=== PATIENT | male | born 1980 | race Caucasian/White ===

== ENCOUNTER 2019-02-17 20:22 | Emergency (ER) | payer MEDICAID ==
[~2019-02-17] VITALS: Ht 180.3 cm; Wt 99.8 kg
[2019-02-17 20:33] VITALS: BP 143/95
--- NOTE | 2019-02-17 20:37 | NUR ---
PT TAKEN TO BED 3
[2019-02-17 20:45] VITALS: BP 143/95
--- NOTE | 2019-02-17 20:45 | NUR ---
38 Y/O M PRESENTED TO ED WITH C/O WANTING TO GET DERMAL PEIRCING REMOVED FROM L FOREARM. PER PT "IT HAS BEEN CONTINUING TO GET SWOLLEN AND WAS BLEEDING AT HOME. WHEN I CUT IT PUS COMES OUT." BLEEDING CONTROLLED. + EDEMA AND TENDERNESS. NO ERTYTHEMA NOTED. ERMD NOTIFIED. WILL CONTINUE TO MONITOR.
[2019-02-17] MEDS ORDERED: CLINDAMYCIN 600 MG/4 ML VIAL IM ONE (20:50)
[2019-02-17] MEDS ORDERED: LIDOCAINE 1% 500 MG/50 ML VIAL INJ SCH (20:50)
[2019-02-17] MEDS ORDERED: LIDOCAINE MPF 1% - 5 mL VIAL 5 ML ONE (21:05)
--- NOTE | 2019-02-17 21:28 | NUR ---
PT WOUND COVERED WITH NON ADHERENT GAUZE AND WRAPPED WITH COFLEX TAPE. +CSM
--- NOTE | 2019-02-17 21:40 | NUR ---
Patient discharged with v/s stable. Written and verbal after care instructions given and explained. Patient alert, oriented and verbalized understanding of instructions. Ambulatory with steady gait. All questions addressed prior to discharge. ID band removed. Patient advised to follow up with PMD. Rx of Keflex and motrin given. Patient educated on indication of medication including possible reaction and side effects. Opportunity to ask questions provided and answered.
== END 2019-02-17 21:40 | disposition home or self-care (01) ==
LOC: MED 20:22
DX: S51.842A Puncture wound with foreign body of left forearm, initial encounter (principal); L03.114 Cellulitis of left upper limb; X58.XXXA Exposure to other specified factors, initial encounter; Y93.9 Activity, unspecified; Y92.89 Other specified places as the place of occurrence of the external cause; Y99.8 Other external cause status
CPT/HCPCS: 10120; 96372; 99284; J2001; J3490

== ENCOUNTER 2019-04-25 11:47 | Emergency (ER) | payer MEDICAID ==
[~2019-04-25] VITALS: Ht 177.8 cm; Wt 95.3 kg
[2019-04-25 11:53] VITALS: BP 116/66
[2019-04-25] MEDS ORDERED: HYDROcodone/APAP 5/325 MG 1 TAB TAB PO ONE (12:25)
[2019-04-25 12:53] LABS: APPEARANCE,URINE CLOUDY (CLEAR); BILIRUBIN,URINE 1+ (NEGATIVE); BLOOD, URINE 3+ (NEGATIVE); COLOR,URINE DARK YELLOW (YELLOW); LEUKOCYTE ESTERASE ,URINE NEGATIVE (NEGATIVE); NITRITE, URINE NEGATIVE (NEGATIVE); UGLUCOSE NEGATIVE (NEGATIVE)
[2019-04-25 13:03] LABS: RBC,URINE TOO NUMEROUS TO COUN /HPF (0-5); WBC,URINE 0-5 /HPF (0-5)
[2019-04-25] MEDS ORDERED: cefTRIAXone 1,000 MG in LIDOCAINE MPF 1% 2.1 ML IM ONE (14:40)
[2019-04-25 16:12] LABS: BASOPHILS % (AUTO) 0.4 % (0.0-2.0); EOSINOPHILS # (AUTO) 0.1 K/uL (0-0.4); EOSINOPHILS % (AUTO) 1.4 % (0.0-4.0); HEMATOCRIT 44.3 % (36-52); LYMPHOCYTES # (AUTO) 1.7 K/uL (2.0-11.5); LYMPHOCYTES % (AUTO) 20.5 % (20.5-51.1); MEAN CORPUSCULAR HEMOGLOBIN 30 pg (27-31); MEAN CORPUSCULAR HGB CONC 34 g/dL (33-37); MEAN CORPUSCULAR VOLUME 89.9 fL (80-94); MONOCYTES # (AUTO) 0.5 K/uL (0.8-1.0); MONOCYTES % (AUTO) 5.9 % (1.7-9.3); NEUTROPHILS # (AUTO) 5.9 K/uL (1.8-7.7); NEUTROPHILS % (AUTO) 71.8 % (42.2-75.2); PLATELET COUNT (AUTO) 215 K/uL (140-450); RED BLOOD CELL COUNT(AUTO) 4.93 MIL/uL (4.20-6.10); WHITE BLOOD COUNT (AUTO) 8.2 K/uL (4.8-10.8)
[2019-04-25 16:24] LABS: ANION GAP 10.6 (8-16); CARBON DIOXIDE 32.3 mmol/L (21-32); CREATININE 0.9 mg/dL (0.7-1.3); POTASSIUM 3.9 mmol/L (3.5-5.1)
[2019-04-25 16:30] LABS: ALBUMIN 3.6 g/dL (3.4-5.0); TOTAL BILIRUBIN 0.6 mg/dL (0.0-1.0)
[2019-04-25 16:50] VITALS: BP 121/82
[2019-04-28 09:07] LABS: CHLAMYDIA TRACHOMATIS AMP DNA Negative (Negative)
== END 2019-04-25 16:48 | disposition home or self-care (01) ==
LOC: MED 11:47
DX: N45.1 Epididymitis (principal); N20.0 Calculus of kidney; Z98.890 Other specified postprocedural states
CPT/HCPCS: 36415; 74176; 76870; 80053; 81001; 85025; 96372; 99284; J0696; J2001; 87491

== ENCOUNTER 2020-07-02 17:29 | Emergency (ER) | payer OTHER, SELFPAY ==
[~2020-07-02] VITALS: Ht 180.3 cm; Wt 90.7 kg
[2020-07-02 17:40] VITALS: BP 125/78
--- NOTE | 2020-07-02 17:40 | NUR ---
PT C/O NAUSEA, SOB, PRODUCTIVE COUGH, BODY ACHES, DIARRHEA FOR 2 DAYS. REPORTS EXPOSED TO HIS [facility] WHO TESTED POSITIVE OF COVID 7 DAYS AGO. PMH: NONE
[2020-07-02 18:41] VITALS: BP 121/75
--- NOTE | 2020-07-02 18:41 | NUR ---
Patient discharged with v/s stable. Written and verbal after care instructions given and explained. Patient alert, oriented and verbalized understanding of instructions. Ambulatory with steady gait. All questions addressed prior to discharge. ID band removed. Patient advised to follow up with PMD. Rx of Promethazine, Zofran, Loperamide, and Ibuprofen given. Patient educated on indication of medication including possible reaction and side effects. Opportunity to ask questions provided and answered. Addendum: 07/02/20 at 1842 by ANILA covid swab collected and sent to the lab.
== END 2020-07-02 18:41 | disposition home or self-care (01) ==
LOC: MED 17:29
DX: B34.9 Viral infection, unspecified (principal); Z20.828 Contact with and (suspected) exposure to other viral communicable diseases
CPT/HCPCS: 99283; U0003

== ENCOUNTER 2020-09-03 10:54 | Emergency (ER) | payer OTHER, SELFPAY ==
[~2020-09-03] VITALS: Ht 180.3 cm; Wt 94.5 kg
[2020-09-03 10:57] VITALS: BP 116/71
--- NOTE | 2020-09-03 11:08 | NUR ---
PATIENT AMBULated to bed 12.
[2020-09-03] MEDS ORDERED: KETOROLAC 60 MG/2 ML VIAL IM ONE (11:30)
--- NOTE | 2020-09-03 11:37 | NUR ---
Autumn trejo in ED - 09/03/[address] at [email or web address] MILLS AT BEDSIDE FOR FURTHER EVALUATION
--- NOTE | 2020-09-03 11:45 | NUR ---
RAD AT BEDSIDE
--- NOTE | 2020-09-03 12:12 | NUR ---
DR MILLS AT PT BEDSIDE FOR FURTHER EVALUATION
--- NOTE | 2020-09-03 12:28 | NUR ---
Patient discharged with v/s stable. Written and verbal after care instructions given and explained. Patient alert, oriented and verbalized understanding of instructions. Ambulatory with steady gait. All questions addressed prior to discharge. ID band removed. Patient advised to follow up with PMD. Rx of augmentin, motrin & norco given. Patient educated on indication of medication including possible reaction and side effects. Opportunity to ask questions provided and answered.
[2020-09-03 12:29] VITALS: BP 116/71
== END 2020-09-03 12:28 | disposition home or self-care (01) ==
LOC: MED 10:54
DX: S60.211A Contusion of right wrist, initial encounter (principal); X58.XXXA Exposure to other specified factors, initial encounter; Y93.89 Activity, other specified; Y92.89 Other specified places as the place of occurrence of the external cause; Y99.8 Other external cause status
CPT/HCPCS: 73110; 73130; 96372; 99284; J1885

== ENCOUNTER 2021-08-03 11:01 | Emergency (ER) | payer OTHER ==
--- NOTE | 2021-08-03 11:30 | NUR ---
CALLED TO TRIAGE NO ANSWER
--- NOTE | 2021-08-03 12:04 | NUR ---
CALLED PATIENT ON LISTED PHONE NUMBER, STATED HE NO LONGER WISHES TO BE SEEN
--- NOTE | 2021-08-03 12:05 | NUR ---
PATIENT LEFT WITHOUT BEING SEEN BY DR. LEGER. NO FURTHER CARE PROVIDED FOR PATIENT.
== END 2021-08-03 12:05 | disposition left against medical advice (07) ==
LOC: MED 11:01
DX: M79.18 Myalgia, other site (principal); R50.9 Fever, unspecified; R51.9 Headache, unspecified; Z53.21 Procedure and treatment not carried out due to patient leaving prior to being seen by health care provider

== ENCOUNTER 2021-10-24 18:34 | Emergency (ER) | payer OTHER ==
[~2021-10-24] VITALS: Ht 180.3 cm; Wt 95.3 kg
[2021-10-24 18:47] VITALS: BP 139/84
--- NOTE | 2021-10-24 19:00 | NUR ---
41 Y/O MALE C/O LT HAND PAIN XTODAY. PALLET CONTAINER FELL ON TOP OF HAND. 10 PAIN. SWELLING NOTED. MEDHX: DENIES NKA
--- NOTE | 2021-10-24 19:36 | NUR ---
Dr. Carter examining patient.
[2021-10-24] MEDS ORDERED: IBUP-2218 PO (19:58)
[2021-10-24] MEDS ORDERED: KETOROLAC 15 MG/ML VIAL IM ONE (20:10)
[2021-10-24 21:00] VITALS: BP 132/60
--- NOTE | 2021-10-24 21:01 | NUR ---
ulnar gutter splint on left hand w/ arm sling. cap refill less than 3 seconds. sensation present. pt educated on splint care and s/s and symptoms of compartment syndrome
--- NOTE | 2021-10-24 21:03 | NUR ---
Patient discharged with v/s stable. Written and verbal after care instructions given and explained. Patient alert, oriented and verbalized understanding of instructions. Ambulatory with steady gait. All questions addressed prior to discharge. ID band removed. Patient advised to follow up with PMD. Rx of IBUPROFEN given. Patient educated on indication of medication including possible reaction and side effects. Opportunity to ask questions provided and answered. COPY OF CD, IMAGING RESULTS, AND WORKER'S COMP GIVEN TO PT.
== END 2021-10-24 21:03 | disposition home or self-care (01) ==
LOC: MED 18:34
DX: S62.657A Nondisplaced fracture of middle phalanx of left little finger, initial encounter for closed fracture (principal); S67.22XA Crushing injury of left hand, initial encounter; Z79.1 Long term (current) use of non-steroidal anti-inflammatories (NSAID); X58.XXXA Exposure to other specified factors, initial encounter; Y93.89 Activity, other specified; Y92.89 Other specified places as the place of occurrence of the external cause; Y99.8 Other external cause status
CPT/HCPCS: 29130; 73130; 96372; 99283; J1885

== ENCOUNTER 2021-12-12 21:49 | Emergency (ER) | payer OTHER ==
[~2021-12-12] VITALS: Ht 180.3 cm; Wt 95.3 kg
[~2021-12-12 21:49] MED LIST: IBUP-2218 PO
[2021-12-12 21:52] VITALS: BP 127/77
[2021-12-12] MEDS ORDERED: KETOROLAC 30 MG/ML VIAL IVP ONE (22:15)
[2021-12-12] MEDS ORDERED: NACL 0.9% 1,000 ML IV ONE ×2 (22:15→23:45)
[2021-12-12 22:46] LABS: BASOPHILS # (AUTO) 0.1 K/uL (0.00-0.22); BASOPHILS % (AUTO) 0.7 % (0.0-2.0); EOSINOPHILS # (AUTO) 0.2 K/uL (0-0.4); EOSINOPHILS % (AUTO) 2.9 % (0.0-4.0); HEMATOCRIT 44.5 % (36-52); HEMOGLOBIN 15.3 g/dL (12.0-18.0); LYMPHOCYTES # (AUTO) 2.4 K/uL (2.0-11.5); LYMPHOCYTES % (AUTO) 32.6 % (20.5-51.1); MEAN CORPUSCULAR HEMOGLOBIN 30 pg (27-31); MEAN CORPUSCULAR HGB CONC 34 g/dL (33-37); MEAN CORPUSCULAR VOLUME 88.3 fL (80-94); MONOCYTES # (AUTO) 0.6 K/uL (0.8-1.0); MONOCYTES % (AUTO) 8.5 % (1.7-9.3); NEUTROPHILS # (AUTO) 4.1 K/uL (1.8-7.7); NEUTROPHILS % (AUTO) 55.3 % (42.2-75.2); PLATELET COUNT (AUTO) 249 K/uL (140-450); RED BLOOD CELL COUNT(AUTO) 5.04 MIL/uL (4.20-6.10); RED CELL DISTRIBUTION WIDTH 12.7 % (11.6-13.7); WHITE BLOOD COUNT (AUTO) 7.5 K/uL (4.8-10.8)
--- NOTE | 2021-12-12 22:49 | NUR ---
MARIANA Kwaw at bedside explaining patient condition and risks going against medical advice.
--- NOTE | 2021-12-12 22:54 | NUR ---
Patient does not wish to proceed with medical care recommended by Evangelina ARMAS. Patient given information related to possible complications, up to and including , which could occur as a result of leaving hospital at this time. Patient verbalizes understanding of risks involved leaving against medical advice. Patient has signed AMA form.
[2021-12-12 23:15] LABS: ALBUMIN 3.7 g/dL (3.4-5.0); ANION GAP 10.1 (8-16); CARBON DIOXIDE 29.8 mmol/L (21-32); CREATININE 0.8 mg/dL (0.6-1.3); POTASSIUM 3.9 mmol/L (3.5-5.1); TOTAL BILIRUBIN 0.4 mg/dL (0.0-1.0)
[2021-12-12 23:15] LABS: APPEARANCE,URINE CLEAR (CLEAR); BILIRUBIN,URINE NEGATIVE (NEGATIVE); BLOOD, URINE 3+ (NEGATIVE); COLOR,URINE YELLOW (YELLOW); LEUKOCYTE ESTERASE ,URINE NEGATIVE (NEGATIVE); NITRITE, URINE NEGATIVE (NEGATIVE); UGLUCOSE NEGATIVE (NEGATIVE)
[2021-12-12 23:25] LABS: RBC,URINE TOO NUMEROUS TO COUN /HPF (0-5); WBC,URINE 0-5 /HPF (0-5)
[2021-12-12 23:26] LABS: CALCIUM OXALATE CRYSTALS,UR 0-10 /HPF (None Seen)
[2021-12-12 23:29] LABS: BARBITURATE, URINE NEGATIVE ng/ml (NEG <=200); BENZODIAZEPINE, URINE NEGATIVE ng/mL (NEG <=200); CANNABINOID, URINE NEGATIVE ng/mL (NEG <=50); COCAINE, URINE NEGATIVE ng/mL (NEG <=300); OPIATE, URINE NEGATIVE ng/mL (NEG <=2000); PHENCYCLIDINE SCREEN,URINE NEGATIVE ng/mL (NEG <=25)
[2021-12-12] MEDS ORDERED: MORPHINE SULFATE 4 MG/ML SYR IVP ONE (23:45)
--- NOTE | 2021-12-13 | NUR ---
IV removed, catheter intact and site benign. Applied folded 4x4 gauze and tape to stop bleeding.
[2021-12-14] MEDS ORDERED: fentaNYL citrate 0.05 MG/ML VIAL ONE (16:32)
[2021-12-14] MEDS ORDERED: MIDAZOLAM 2 MG/2 ML VIAL ONE (16:32)
[2021-12-14] MEDS ORDERED: PROPOFOL 200 MG/20 ML VIAL IV ONE (16:33)
[2021-12-14] MEDS ORDERED: ONDANSETRON 4 MG/2 ML VIAL ONE (17:24)
[2021-12-14] MEDS ORDERED: DEXAMETHASONE 4 MG/ML VIAL ONE (17:24)
[2021-12-15] MEDS ORDERED: KETO10TA2 PO (08:25)
== END 2021-12-12 23:56 | disposition left against medical advice (07) ==
LOC: MED 21:49
DX: N20.0 Calculus of kidney (principal); Z79.1 Long term (current) use of non-steroidal anti-inflammatories (NSAID)
CPT/HCPCS: 36415; 74176; 80053; 80305; 81001; 85025; 96361; 96374; 99284; J1885; J7030; J1100; J2250; J2270; J2405; J2704; J3010

== ENCOUNTER 2023-07-17 23:06 | Emergency (ER) | payer OTHER ==
[~2023-07-17] VITALS: Ht 180.3 cm; Wt 99.8 kg
[~2023-07-17 23:06] MED LIST changes: -IBUP-2218 PO; +KETO10TA2 PO
[2023-07-17 23:10] VITALS: BP 119/72; PULSE 76; RESP 17; TEMP 97.9; O2SAT 97
[2023-07-18] MEDS ORDERED: BACITRACIN OINT 500 UNITS/GM PKT TP ONE (03:20)
[2023-07-18] MEDS ORDERED: NAPR-54 PO (03:20)
[2023-07-18] MEDS ORDERED: BACI-418 TP (03:20)
== END 2023-07-18 04:30 | disposition home or self-care (01) ==
LOC: MED 23:06
DX: S61.210A Laceration without foreign body of right index finger without damage to nail, initial encounter (principal); Z87.448 Personal history of other diseases of urinary system; Z79.899 Other long term (current) drug therapy; Z79.1 Long term (current) use of non-steroidal anti-inflammatories (NSAID); Z79.2 Long term (current) use of antibiotics; X58.XXXA Exposure to other specified factors, initial encounter; Y92.89 Other specified places as the place of occurrence of the external cause; Y93.89 Activity, other specified; Y99.8 Other external cause status
CPT/HCPCS: 90715; 99283

== ENCOUNTER 2024-04-15 00:55 | Emergency (ER) | payer OTHER ==
[~2024-04-15] VITALS: Ht 177.8 cm; Wt 100.7 kg
[~2024-04-15 00:55] MED LIST changes: +BACI-418 TP; +NAPR-337 PO
[2024-04-15 01:09] VITALS: BP 142/85; PULSE 69; RESP 18; TEMP 98; O2SAT 98
[2024-04-15 02:21] LABS: APPEARANCE,URINE CLEAR (CLEAR); BILIRUBIN,URINE NEGATIVE (NEGATIVE); BLOOD, URINE TRACE-I (NEGATIVE); COLOR,URINE YELLOW (YELLOW); LEUKOCYTE ESTERASE ,URINE NEGATIVE (NEGATIVE); NITRITE, URINE NEGATIVE (NEGATIVE); PROTEIN,URINE NEGATIVE (NEGATIVE); UGLUCOSE NEGATIVE (NEGATIVE)
[2024-04-15 02:29] LABS: RBC,URINE 11-20 (MOD) /HPF (0-5)
[2024-04-15 02:29] LABS: BASOPHILS % (AUTO) 0.6 % (0.0-2.0); EOSINOPHILS # (AUTO) 0.2 K/uL (0-0.4); HEMATOCRIT 42.9 % (36-52); HEMOGLOBIN 14.8 g/dL (12.0-18.0); LYMPHOCYTES # (AUTO) 2.4 K/uL (2.0-11.5); LYMPHOCYTES % (AUTO) 28.9 % (20.5-51.1); MEAN CORPUSCULAR HEMOGLOBIN 30 pg (27-31); MEAN CORPUSCULAR HGB CONC 35 g/dL (33-37); MEAN CORPUSCULAR VOLUME 87.5 fL (80-94); MONOCYTES # (AUTO) 0.7 K/uL (0.8-1.0); MONOCYTES % (AUTO) 8.7 % (1.7-9.3); NEUTROPHILS # (AUTO) 4.9 K/uL (1.8-7.7); NEUTROPHILS % (AUTO) 59.8 % (42.2-75.2); PLATELET COUNT (AUTO) 234 K/uL (140-450); RED CELL DISTRIBUTION WIDTH 13.4 % (11.6-13.7); WHITE BLOOD COUNT (AUTO) 8.2 K/uL (4.8-10.8)
[2024-04-15 02:30] LABS: BACTERIA,URINE 10-30 (MOD) /HPF (None Seen); MUCUS,URINE 1+ /LPF (None Seen); SQUAMOUS EPITHELIAL CELL,UR 0-3 (FEW) /LPF (0-3 (FEW)); WBC,URINE TOO MANY TO COUNT /HPF (0-5)
[2024-04-15] MEDS: NACL 0.9% 1,000 ML IV ONE (02:30)
[2024-04-15] MEDS: KETOROLAC 30 MG/ML VIAL IVP ONE (02:32)
[2024-04-15 02:40] LABS: ANION GAP 12.3 (8-16); CALCIUM 8.1 mg/dL (8.5-10.1); CARBON DIOXIDE 28.2 mmol/L (21-32); CREATININE 0.8 mg/dL (0.6-1.3); POTASSIUM 3.5 mmol/L (3.5-5.1)
[2024-04-15 05:00] VITALS: BP 119/81; PULSE 78; RESP 17; TEMP 98; O2SAT 98
[2024-04-15] MEDS ORDERED: TAMS0.4C96 PO (05:01)
[2024-04-15] MEDS ORDERED: IBUP-2213 PO (05:01)
[2024-04-15] MEDS ORDERED: CIPR500T4 PO (05:01)
[2024-04-15] MEDS: MORPHINE SULFATE 4 MG/ML SYR IVP ONE (05:12)
== END 2024-04-15 05:41 | disposition home or self-care (01) ==
LOC: MED 00:55
DX: N20.0 Calculus of kidney (principal); Z98.890 Other specified postprocedural states; Z79.899 Other long term (current) drug therapy
CPT/HCPCS: 36415; 74176; 80048; 81001; 85025; 87086; 96361; 96374; 96375; 99285; J1885; J2270